=== PATIENT | female | born 1995 | race Caucasian/White ===

== ENCOUNTER 2024-03-24 21:03 | Inpatient (IN) | payer OTHER ==
[2024-03-24] MEDS ORDERED: ONDANSETRON 4 MG/2 ML VIAL ONE (21:56)
[2024-03-24] MEDS ORDERED: MORPHINE SULFATE 2 MG/ML SYRINGE ONE (21:56)
[2024-03-24 22:01] LABS: BASO % 0.4 % (0-2.0); EOS % 0.3 % (0-4.5); HEMATOCRIT 38.6 % (32.4-45.2); HEMOGLOBIN 12.9 GM/dL (10.7-15.3); LYMPH % 8.3 % (8-40); MCH 29.5 pg (25.7-33.7); MCHC 33.5 g/dl (32.0-36.0); MEAN CELL VOLUME 88.1 fl (80-96); MEAN PLT VOLUME 7.3 fl (7.5-11.1); MONO % 2.9 % (3.8-10.2); NEUT % 88.1 % (42.8-82.8); PLATELET COUNT 299 10^3/uL (134-434); RBC 4.38 M/mm3 (3.60-5.2); RDW 12.5 % (11.6-15.6); WHITE BLOOD COUNT 15.7 K/mm3 (4.0-10.0)
[2024-03-24] MEDS: morphine CARPU-JECT 2 MG/1 ML DISP.SYRIN IVPUSH ONE (22:06)
[2024-03-24] MEDS: ONDANSETRON 4 MG/2 ML VIAL IVPUSH ONE (22:06)
[2024-03-24] MEDS: SODIUM CHLORIDE 0.9% 500 ML INFUS.BAG IV ONE (22:06)
[2024-03-24] MEDS ORDERED: FAMOTIDINE 20 MG/50 ML IVPB 20 MG/50 ML MG IVPB ONE (22:11)
[2024-03-24 22:20] LABS: POTASSIUM 3.6 mmol/L (3.5-5.1)
[2024-03-24] MEDS: morphine CARPU-JECT 2 MG/1 ML DISP.SYRIN IM ONE (22:20)
[2024-03-24] MEDS: FAMOTIDINE 20 MG/50 ML IVPB 20 MG/50 ML MG IVPB ONE (22:20)
[2024-03-24 22:22] LABS: ALBUMIN 4.4 g/dl (3.4-5.0); BLOOD UREA NITROGEN 7.3 mg/dL (7-18); CALCIUM 8.8 mg/dL (8.5-10.1)
[2024-03-24 22:24] LABS: CREATININE 0.8 mg/dL (0.55-1.3)
[2024-03-24 22:27] LABS: TOT PROT 7.2 g/dl (6.4-8.2)
[2024-03-24 22:28] LABS: BILIRUBIN,TOTAL 0.9 mg/dL (0.2-1)
[2024-03-24] MEDS ORDERED: CEFTRIAXONE 1 GM/50 ML BAG ONE (23:40)
[2024-03-24] MEDS: CEFTRIAXONE 1 GM in DEXTROSE 5%-WATER - 100 ML IVPB ONE (23:45)
[2024-03-25 00:07] LABS: HCG,QUALITATIVE URINE Negative
[2024-03-25 00:09] LABS: INR 1.12 (0.83-1.09); PROTHROMBIN TIME (PATIENT) 12.8 SEC (9.7-13.0)
[2024-03-25 00:23] LABS: URINE APPEARANCE CLEAR; URINE BILIRUBIN NEGATIVE (NEGATIVE); URINE COLOR YELLOW; URINE GLUCOSE (UA) NEGATIVE (NEGATIVE); URINE KETONE 2+ (NEGATIVE); URINE LEUK ESTERASE NEGATIVE (NEGATIVE); URINE NITRITE NEGATIVE (NEGATIVE); URINE PROTEIN NEGATIVE (NEGATIVE); URINE UROBILINOGEN 0.2 mg/dL (0.2-1.0)
[2024-03-25] MEDS ORDERED: DOCUSATE SODIUM 100 MG CAPSULE (FP) PO PRN ×2 (00:41→12:59)
[2024-03-25] MEDS ORDERED: ACETAMINOPHEN 1000 MG/100 ML BAG IVPB PRN ×2 (00:44→12:59)
[2024-03-25] MEDS: D5-1/2NS+20 MEQ KCL - 20 MEQ/1,000 ML INFUS.BAG IV SCH (01:14)
[2024-03-25] MEDS ORDERED: morphine SULFATE 4 MG/ML VIAL ONE (02:18)
[2024-03-25] MEDS ORDERED: ONDANSETRON 4 MG/2 ML VIAL ONE ×2 (05:51→10:49)
[2024-03-25] MEDS: ONDANSETRON 4 MG/2 ML VIAL IVPUSH PRN (05:54)
[2024-03-25 08:03] LABS: BASO % 0.2 % (0-2.0); HEMATOCRIT 35.4 % (32.4-45.2); HEMOGLOBIN 11.8 GM/dL (10.7-15.3); LYMPH % 5.9 % (8-40); MCH 29.7 pg (25.7-33.7); MCHC 33.3 g/dl (32.0-36.0); MEAN CELL VOLUME 89.1 fl (80-96); MEAN PLT VOLUME 8.3 fl (7.5-11.1); MONO % 6.3 % (3.8-10.2); NEUT % 87.6 % (42.8-82.8); PLATELET COUNT 262 10^3/uL (134-434); RBC 3.97 M/mm3 (3.60-5.2); RDW 12.4 % (11.6-15.6); WHITE BLOOD COUNT 13.8 K/mm3 (4.0-10.0)
[2024-03-25] MEDS ORDERED: morphine SULFATE 4 MG/ML VIAL IVPUSH PRN (09:01)
[2024-03-25] MEDS ORDERED: ONDANSETRON 4 MG/2 ML VIAL IVPUSH PRN ×3 (10:38→12:59)
[2024-03-25] MEDS ORDERED: oxyCODONE HCL 5 MG TABLET PO PRN ×5 (10:38→13:07)
[2024-03-25] MEDS: CEFTRIAXONE 1 GM in DEXTROSE 5%-WATER - 50 ML IVPB SCH (10:42)
[2024-03-25] MEDS ORDERED: ROCURONIUM BROMIDE 50 MG/5 ML VIAL ONE (10:48)
[2024-03-25] MEDS ORDERED: PROPOFOL 20 ML ONE (10:48)
[2024-03-25] MEDS ORDERED: LIDOCAINE HCL/PF 2% SDV 5ML VIAL ONE (10:49)
[2024-03-25] MEDS ORDERED: SEVOFLURANE 250 ML BTL ONE (10:49)
[2024-03-25] MEDS ORDERED: DEXAMETHASONE SOD PHOSPHATE 4 MG/1 ML VIAL ONE (10:49)
[2024-03-25] MEDS ORDERED: MIDAZOLAM HCL 2 MG/2 ML SINGLE DOSE VIAL ONE (10:51)
[2024-03-25 11:10] VITALS: BMI 22.8
[2024-03-25] MEDS: BUPIVACAINE HCL/PF 0.5% (5MG/ML) 10 ML VIAL IJ ONE ×2 (12:02)
[2024-03-25] MEDS ORDERED: KETOROLAC TROMETHAMINE 30 MG/1 ML VIAL ONE (12:04)
[2024-03-25] MEDS ORDERED: GLYCOPYRROLATE 0.2 MG/1 ML VIAL ONE ×2 (12:10)
[2024-03-25] MEDS ORDERED: NEOSTIGMINE METHYLSULFATE 0.5 MG/1 ML - 10 ML MDV ONE (12:10)
[2024-03-25] MEDS: LACTATED RINGERS SOLUTION 1,000 ML IV SCH ×2 (13:35→13:58)
[2024-03-25] MEDS: morphine SULFATE 4 MG/ML VIAL IVPUSH PRN (22:25)
[2024-03-26 09:33] LABS: HEMATOCRIT 30.5 % (32.4-45.2); HEMOGLOBIN 10.2 GM/dL (10.7-15.3); MCH 29.2 pg (25.7-33.7); MCHC 33.4 g/dl (32.0-36.0); MEAN CELL VOLUME 87.6 fl (80-96); MEAN PLT VOLUME 8.2 fl (7.5-11.1); PLATELET COUNT 205 10^3/uL (134-434); RBC 3.48 M/mm3 (3.60-5.2); RDW 12.8 % (11.6-15.6); WHITE BLOOD COUNT 11.4 K/mm3 (4.0-10.0)
[2024-03-26 09:36] LABS: INR 1.2 (0.83-1.09); PROTHROMBIN TIME (PATIENT) 13.7 SEC (9.7-13.0)
[2024-03-26 09:49] LABS: POTASSIUM 3.4 mmol/L (3.5-5.1)
[2024-03-26 10:06] LABS: BLOOD UREA NITROGEN 7.7 mg/dL (7-18)
[2024-03-26 10:10] LABS: CREATININE 0.6 mg/dL (0.55-1.3)
[2024-03-26] MEDS: POTASSIUM CHLORIDE TABS 20 MEQ TABLET.ER (FP) PO ONE (10:12)
[2024-03-26 10:53] VITALS: BP 93/54; PULSE 60; RESP 20; TEMP 98.4
== END 2024-03-26 11:08 | disposition home or self-care (01) | DRG 225 ==
LOC: JER 21:03 → INTOOBSV 23:38 → JERBED 23:38 → OBSVTOIN 03-25 08:57 → J8W 03-25 09:35
PROVIDERS: ADMIT Internal Medicine; ATTEND Nurse Practitioner Acute Care
PROC: 0DTJ4ZZ Resection of Appendix, Percutaneous Endoscopic Approach (ICD-10-PCS; principal; 2024-03-25 14:30)
DX: K35.890 Other acute appendicitis without perforation or gangrene (principal)
CPT/HCPCS: 36415; 74177-TC; 80048; 80053; 81003; 83735; 84100; 84703; 85025; 85027; 85610; 85730; 86850; 86900; 86901; 87086; 88304-TC; 93005; 93010; 94760; 99285-25; G0378; Q9967

== ENCOUNTER 2024-07-01 09:57 | Emergency (ER) | payer OTHER ==
[2024-07-01] MEDS ORDERED: IBUPROFEN 600 MG TABLET (FP) PO ONE (11:02)
[2024-07-01 11:33] VITALS: BMI 20.7
[2024-07-01] MEDS: IBUPROFEN 600 MG TABLET (FP) PO ONE (11:35)
[2024-07-01 11:48] LABS: EPI CELLS >36 /uL (0-25.1); HCG,QUALITATIVE URINE Negative; HYALINE CASTS 1 /uL (0-3.1); PH,URINE 5.5 (5.0-8.0); URINE APPEARANCE CLOUDY; URINE BACTERIA 546 /uL (0-1359); URINE BILIRUBIN NEGATIVE (NEGATIVE); URINE COLOR YELLOW; URINE GLUCOSE (UA) NEGATIVE (NEGATIVE); URINE KETONE NEGATIVE (NEGATIVE); URINE LEUK ESTERASE 2+ (NEGATIVE); URINE NITRITE NEGATIVE (NEGATIVE); URINE PROTEIN NEGATIVE (NEGATIVE); URINE RBC 9 /uL (0-23.9); URINE WBC 199 /uL (0-25.8)
[2024-07-01] MEDS ORDERED: NITROFURANTOIN MONOHYD/M-CRYST 100 MG CAPSULE PO ONE (13:41)
[2024-07-01 14:22] VITALS: BP 107/74; PULSE 75; RESP 20; TEMP 98.2
== END 2024-07-01 14:22 | disposition home or self-care (01) ==
LOC: JER 09:57
DX: N30.00 Acute cystitis without hematuria (principal); R50.9 Fever, unspecified; R11.2 Nausea with vomiting, unspecified; R10.30 Lower abdominal pain, unspecified
CPT/HCPCS: 36415; 81003; 84703; 87086; 87491; 87591; 87661; 99283-25

== ENCOUNTER 2024-07-25 19:20 | Emergency (ER) | payer OTHER ==
[2024-07-25 19:40] VITALS: RESP 18; TEMP 98.3; BMI 20.5
[2024-07-25 23:24] LABS: BASO % 0.8 % (0-2.0); EOS % 1.9 % (0-4.5); HEMATOCRIT 33.8 % (32.4-45.2); HEMOGLOBIN 11.5 GM/dL (10.7-15.3); LYMPH % 25.1 % (8-40); MCH 29.4 pg (25.7-33.7); MEAN CELL VOLUME 86.7 fl (80-96); MEAN PLT VOLUME 7.2 fl (7.5-11.1); MONO % 7.9 % (3.8-10.2); NEUT % 64.3 % (42.8-82.8); PLATELET COUNT 350 10^3/uL (134-434); RDW 12.8 % (11.6-15.6); WHITE BLOOD COUNT 7.6 K/mm3 (4.0-10.0)
[2024-07-25 23:28] LABS: EPI CELLS 11 /uL (0-25.1); HCG,QUALITATIVE URINE Negative; HYALINE CASTS 0 /uL (0-3.1); PH,URINE 7.5 (5.0-8.0); URINE APPEARANCE CLEAR; URINE BACTERIA 102 /uL (0-1359); URINE BILIRUBIN NEGATIVE (NEGATIVE); URINE COLOR YELLOW; URINE GLUCOSE (UA) NEGATIVE (NEGATIVE); URINE KETONE NEGATIVE (NEGATIVE); URINE LEUK ESTERASE TRACE (NEGATIVE); URINE NITRITE NEGATIVE (NEGATIVE); URINE PROTEIN NEGATIVE (NEGATIVE); URINE RBC 20 /uL (0-23.9); URINE UROBILINOGEN 0.2 mg/dL (0.2-1.0); URINE WBC 29 /uL (0-25.8)
[2024-07-25] MEDS ORDERED: ACETAMINOPHEN INJECTION 100 ML ONE (23:31)
[2024-07-25] MEDS: ACETAMINOPHEN 1000 MG/100 ML BAG IVPB ONE (23:35)
[2024-07-25 23:46] LABS: POTASSIUM 4.3 mmol/L (3.5-5.1)
[2024-07-25 23:48] LABS: ALBUMIN 3.8 g/dl (3.4-5.0); CALCIUM 8.8 mg/dL (8.5-10.1)
[2024-07-25 23:49] LABS: BLOOD UREA NITROGEN 13.2 mg/dL (7-18)
[2024-07-25 23:53] LABS: BILIRUBIN,TOTAL 0.5 mg/dL (0.2-1); CREATININE 0.8 mg/dL (0.55-1.3); TOT PROT 7.4 g/dl (6.4-8.2)
[2024-07-26 02:53] VITALS: BP 110/72; PULSE 72
== END 2024-07-26 02:53 | disposition admitted as inpatient to this hospital (09) ==
LOC: JER 19:20
PROC: 3E033NZ Introduction of Analgesics, Hypnotics, Sedatives into Peripheral Vein, Percutaneous Approach (ICD-10-PCS; principal; 2024-07-25)
DX: R59.0 Localized enlarged lymph nodes (principal)
CPT/HCPCS: 36415; 74177-TC; 80053; 81003; 84703; 85025; 87086; 99285-25; J0131; Q9967